=== PATIENT | male | born 1945 | race Caucasian/White ===

== ENCOUNTER 2020-11-15 10:18 | Emergency (ER) | payer MEDICARE, OTHER ==
[~2020-11-15] VITALS: Ht 160 cm; Wt 79.4 kg
--- NOTE | 2020-11-15 11:44 | RAD ---
Left lower extremity venous duplex study Clinical History: Lower extremity pain Technique: Using a combination of real time ultrasound imaging and color-flow and pulse Doppler imagi ng techniques, including spectral analysis, graded compression and augmentation, duplex evaluation of the deep venous system of the left lower extremity was performed. Multiple images were obtained. Findings: There is no sonographic evidence of deep venous thrombosis involving the visualized deep ve nous structures of the left lower extremity Impression: No evidence of deep venous thrombosis involving the left lower extremity Electronically signed by: Michael Sheriff MD (11/15/2020 11:42 AM) [id number]
--- NOTE | 2020-11-15 11:46 | PHYS DOC ---
Past History Additional Past Medical Histor: GRAPH/HOST DISEASE Past Surgical History: Cancer Surgery, Colectomy Alcohol Use: None General Adult EDM: Chief Complaint: LOWER EXTREMITY SWELLING HPI: HPI: Patient is a 75-year-old male presents with left lower leg pain, redness and swelling that he noticed yesterday. Patient states he has a history of PE and DVT. Patient had bilateral lower leg, 3+ pitting edema. Patient states he takes diuretics and swelling is normal for him but is worse than usual. Patient denies chest pain or shortness of breath. Patient has a history of CHF, stage III renal failure, leukemia, diverticulitis. Review of Systems: Review of Systems: Constitutional: Denies fever or chills Eyes: Denies change in visual acuity HENT: Denies nasal congestion or sore throat Respiratory: Denies cough or shortness of breath Cardiovascular: Denies chest pain. Reports bilateral lower leg edema GI: Denies abdominal pain, nausea, vomiting, bloody stools or diarrhea : Denies dysuria Musculoskeletal: Denies back pain or joint pain Integument: Denies rash Neurologic: Denies headache, focal weakness or sensory changes Endocrine: Denies polyuria or polydipsia Lymphatic: Denies swollen glands Psychiatric: Denies depression or anxiety Allergies: Allergies: Allergies Coded Allergies Type Severity Reaction Last Updated Verified nitroglycerin Adverse Reaction Unknown Unknown 11/15/20 Yes Physical Exam: PE: Constitutional: Well developed, well nourished, no acute distress, non-toxic appearance. [] HENT: Normocephalic, atraumatic, bilateral external ears normal, oropharynx moist, no oral exudates, nose normal. [] Eyes: PERRLA, EOMI, conjunctiva normal, no discharge. [] Neck: Normal range of motion, no tenderness, supple, no stridor. [] Cardiovascular:Heart rate regular rhythm, no murmur [] Lungs & Thorax: Bilateral breath sounds clear to auscultation [] Abdomen: Bowel sounds normal, soft, no tenderness, no masses, no pulsatile masses. [] Skin: Warm, dry, no erythema, no rash. [] Back: No tenderness, no CVA tenderness. [] Extremities: Left lower leg tenderness, ROM intact, 3+ pitting edema Neurologic: Alert and oriented X 3, normal motor function, normal sensory function, no focal deficits noted. [] Psychologic: Affect normal, judgement normal, mood normal. [] Current Patient Data: Vital Signs: Vital Signs Date Time Temp Pulse Resp B/P (MAP) Pulse Ox O2 Delivery O2 Flow Rate FiO2 11/15/20 10:30 98.3 67 20 167/85 98 Room Air EKG: EKG: [] Radiology/Procedures: Radiology/Procedures: []Left lower extremity venous duplex study Clinical History: Lower extremity pain Technique: Using a combination of real time ultrasound imaging and color-flow and pulse Doppler imaging techniques, including spectral analysis, graded compression and augmentation, duplex evaluation of the deep venous system of the left lower extremity was performed. Multiple images were obtained. Findings: There is no sonographic evidence of deep venous thrombosis involving the visualized deep venous structures of the left lower extremity Impression: No evidence of deep venous thrombosis involving the left lower extremity Electronically signed by: Michael Sheriff MD (11/15/2020 11:42 AM) [id number] Heart Score: C/O Chest Pain: No Risk Factors: Risk Factors: DM, Current or recent (<one month) smoker, HTN, HLP, family history of CAD, obesity. Risk Scores: Score 0 - 3: 2.5% MACE over next 6 weeks - Discharge Home Score 4 - 6: 20.3% MACE over next 6 weeks - Admit for Clinical Observation Score 7 - 10: 72.7% MACE over next 6 weeks - Early Invasive Strategies Course & Med Decision Making: Course & Med Decision Making Pertinent Labs and Imaging studies reviewed. (See chart for details) [] 75-year-old male presents with left lower leg pain, redness and 3+ pitting edema. Patient has a history of CHF. Patient states that he normally has to be admitted to the hospital once swelling gets this bad to help with fluid retention. Patient's denying shortness of breath, cough. Patient still able to ambulate but has an increase in pain due to swelling. Patient also has history of DVT and PEs. Left lower extremity ultrasound ordered to rule out DVT. Ultrasound is negative for DVT. BNP 1756, creatinine 2.0. Patient is most likely experiencing CHF exacerbation. Recommended patient be admitted to the hospital. Discussed results with patient and . Patient states he would prefer to be discharged home. states "his swelling is pretty consistent with his normal swelling". Patient is hemodynamically stable. Patient denying shortness of breath or chest pain. Patient has an appointment tomorrow with his air route controller at . Discussed risk factors of being discharged home. Patient and both state that they understand. I am sending patient home with a prescription for doxycycline to treat cellulitis of left leg. Patient given strict return precautions. Patient and both state that they understand discharge instructions and agree with discharge plan. Patient is hemodynamically stable upon disposition. Dragon Disclaimer: Dragon Disclaimer: This electronic medical record was generated, in whole or in part, using a voice recognition dictation system. Departure Departure: Impression: Primary Impression: Cellulitis Qualified Codes: L03.116 - Cellulitis of left lower limb Additional Impressions: CHF (congestive heart failure) Qualified Codes: I50.9 - Heart failure, unspecified Chronic renal failure, stage 3 (moderate) Qualified Codes: N18.30 - Chronic kidney disease, stage 3 unspecified Disposition: HOME / SELF CARE / HOMELESS Condition: STABLE Referrals: ALFONSO CANNON (PCP) Patient Instructions: Cellulitis, [id number] Additional Instructions: You were seen in the emergency room for redness, swelling, discomfort to left calf. Ultrasound was negative for DVT. Your BNP was 1756, creatinine 2.0. I recommended that you be admitted to the hospital for CHF exacerbation. After discussing admission plan, you and your both decided that you wanted to be discharged to home and to see your air route controller tomorrow. We discussed return precautions. I am also sending you home with doxycycline to treat your left leg cellulitis. Please make sure you take antibiotic in full and as directed. Please return to emergency room if you have an increase in shortness of breath or any worsening symptoms or concerns. EMERGENCY DEPARTMENT GENERAL DISCHARGE INSTRUCTIONS Thank you for coming to [facility] (ED) today and trusting us with you care. We trust that you had a positivie experience in our Emergency Department. If you wish to speak to the department management, you may call the director at [phone]. YOUR FOLLOW UP INSTRUCTIONS ARE FOLLOWS: 1. Do you have a private Doctor? If you do not have a private doctor, please ask for a resource list of physicians or clinics that may be able to assist you with follow up care. 2. The Emergency Physician has interpreted your x-rays. The X-Ray specialist will also review them. If there is a change in the findings, you will be notified in 48 hours when at all possible. 3. A lab test or culture has been done, your results will be reviewed and you will be notified if you need a change in treatment. ADDITIONAL INSTRUCTIONS AND INFORMATION: 1. Your care today has been supervised by a physician who is specially trained in emergency care. Many problems require more than one evaluation for a complete diagnosis and treatment. We recommend that you schedule your follow up appointment as recommended to ensure complete treatment of you illness or injury. If you are unable to obtain follow up care and continue to have a problem, or if your condition worsens, we recommend that you return to the ED. 2. We are not able to safely determine your condition over the phone nor are we able to give sound medical advice over the phone. For these safety reasons, if you call for medical advice we will ask you to come to the ED for further evaluation. 3. If you have any questions regarding these discharge instructions please call the ED at [phone]. SAFETY INFORMATION: In the interest of safety, wellness, and injury prevention; we encourage you to wear your sealbelt, if you smoke; quite smoking, and we encourage family to use a protective helmet for bicycling and other sporting events that present an increased risk for head injury. IF YOUR SYMPTOMS WORSEN OR NEW SYMPTOMS DEVELOP, OR YOU HAVE CONCERNS ABOUT YOUR CONDITION; OR IF YOUR CONDITION WORSENS WHILE YOU ARE WAITING FOR YOUR FOLLOW UP APPOINTMENT; EITHER CONTACT YOUR PRIMARY CARE DOCTOR, THE PHYSICIAN WHOSE NAME AND NUMBER YOU WERE GIVEN, OR RETURN TO THE ED IMMEDIATELY. Scripts Doxycycline Hyclate (DOXYCYCLINE HYCLATE) 100 Mg Tablet 1 TAB PO BID for cellulitis for 7 Days, #14 TAB Prov: ANGELIA CABRERA APRN 11/15/20 ANGELIA CABRERA APRN Nov 15, 2020 11:46
[2020-11-15 12:44] LABS: BASO % 0 % (0-3); EOS % 0 % (0-3); HEMATOCRIT 28.4 % (39.0-53.0); HEMOGLOBIN 8.7 g/dL (13.0-17.5); LYMPH # 0.6 x10^3/uL (1.0-4.8); LYMPH % 7 % (24-48); MEAN CORPUSCULAR HEMOGLOBIN 27 pg (25-35); MEAN CORPUSCULAR HGB CONC 31 g/dL (31-37); MEAN CORPUSCULAR VOLUME 87 fL (79-100); MONO # 0.6 x10^3/uL (0.0-1.1); MONO % 6 % (0-9); NEUT # 7.5 x10^3uL (1.8-7.7); NEUT % 86 % (31-73); PLATELET COUNT 86 x10^3/uL (140-400); RED BLOOD COUNT 3.25 x10^6/uL (4.30-5.70); RED CELL DISTRIBUTION WIDTH 21.8 % (11.5-14.5); WHITE BLOOD COUNT 8.7 x10^3/uL (4.0-11.0)
[2020-11-15 12:46] LABS: CALCIUM 7.9 mg/dL (8.5-10.1); GFR 32.9; POTASSIUM 3.8 mmol/L (3.5-5.1)
--- NOTE | 2020-11-15 12:51 | EKG ---
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
[2020-11-15 12:59] LABS: ALBUMIN 2.9 g/dL (3.4-5.0); TOTAL BILIRUBIN 0.7 mg/dL (0.2-1.0); TOTAL PROTEIN 5.7 g/dL (6.4-8.2)
[2020-11-15 13:02] LABS: BILIRUBIN,URINE NEG (NEG); CLARITY,URINE CLEAR; COLOR,URINE STRAW; GLUCOSE,URINE NEG (NEG); NITRITE,URINE NEG (NEG); UROBILINOGEN,URINE 0.2 mg/dL (0.2 mg/dL)
[2020-11-15 13:03] LABS: BACTERIA,URINE 0 /HPF (0-FEW); SQUAMOUS EPITHELIAL CELL,UR OCC /LPF; WBC,URINE OCC /HPF (0-4)
[2020-11-15] MEDS ORDERED: DOXY100T PO (13:24)
[2020-11-15 13:30] VITALS: BP 153/74
--- NOTE | 2020-11-15 13:54 | RAD ---
AP chest. HISTORY: Lower leg swelling AP view was taken of the chest. Heart is normal in size. There is no pleural effusion. There are no c onfluent infiltrates. There is an old humerus fracture on the left. The aorta is tortuous. There is n ot evidence of heart failure. IMPRESSION: 1. No acute infiltrates. Electronically signed by: Enrico Unegr MD (11/15/2020 1:52 PM) [facility]
[2020-11-15 14:39] LABS: PLT ESTIMATE ADEQUATE (ADEQUATE)
== END 2020-11-15 13:31 | disposition home or self-care (01) ==
LOC: ER 10:18
DX: L03.116 Cellulitis of left lower limb (principal); E11.22 Type 2 diabetes mellitus with diabetic chronic kidney disease; I13.0 Hypertensive heart and chronic kidney disease with heart failure and stage 1 through stage 4 chronic kidney disease, or unspecified chronic kidney disease; N18.30 Chronic kidney disease, stage 3 unspecified; I50.9 Heart failure, unspecified
CPT/HCPCS: 36415; 71045; 80053; 81001; 83880; 85025; 93005; 93971; 99285-25